=== PATIENT | male | born 1970 | race African-American/Black ===

== ENCOUNTER 2022-12-30 17:33 | Emergency (ER) | payer SELFPAY ==
[~2022-12-30] VITALS: Ht 180.3 cm; Wt 86.4 kg
[2022-12-30 17:36] VITALS: TEMP 98.6
[2022-12-30 18:00] LABS: BASO # 0.1 K/mm3 (0.0-0.2); BASO % 0.8 % (0.0-2.0); EOS # 0.2 K/mm3 (0.0-0.7); EOS % 2.6 % (0.0-4.0); GRAN # 3.5 K/mm3 (1.4-6.5); GRAN % 44.2 % (42.2-75.2); HEMATOCRIT 46.1 % (42.0-52.0); HEMOGLOBIN 15.8 g/dl (13.5-18.0); LYMPH # 3.7 K/mm3 (1.2-3.4); LYMPH % 46.9 % (20.0-51.0); MEAN CELL VOLUME 83 fl (80.0-100.0); MEAN CORPUSCULAR HEMOGLOBIN 28 pg (27-31); MEAN CORPUSCULAR HGB CONC 34 g/dl (33.0-37.0); MEAN PLATELET VOLUME 11.4 fl (7.4-10.4); MONO # 0.4 K/mm3 (0.1-0.6); MONO % 5.2 % (1.7-9.3); PLATELET COUNT 257 K/mm3 (130-400); RED BLOOD COUNT 5.56 M/mm3 (4.20-5.60); REDCELL DISTRIBUTION WIDTH-CV 13.9 % (11.5-14.5)
[2022-12-30 18:18] LABS: ALANINE AMINOTRANSFERASE 42 U/L (0-55); ALBUMIN 4.1 gm/dL (3.5-5.0); ALKALINE PHOSPHATASE 86 U/L (40-150); ANION GAP 10 mmol/L (7-16); AST,SGOT 15 U/L (5-34); BILIRUBIN,TOTAL 0.2 mg/dL (0.2-1.2); BLOOD UREA NITROGEN 13 mg/dL (8-26); CALCIUM 9.3 mg/dL (8.4-10.2); CARBON DIOXIDE 24 mmol/L (22-29); CHLORIDE 106 mmol/L (98-107); GLUCOSE 109 mg/dL (70-99); POTASSIUM 3.7 mmol/L (3.5-4.5); SODIUM 140 mmol/L (136-145)
[2022-12-30 18:24] LABS: TROPONIN-I < 0.010 ng/mL (0.00-0.033)
[2022-12-30 19:30] VITALS: BP 160/101; PULSE 78
== END 2022-12-30 19:31 | disposition home or self-care (01) ==
LOC: COL.ER 17:33
PROVIDERS: Nurse Practitioner Primary Care
DX: R07.9 Chest pain, unspecified (principal); R20.2 Paresthesia of skin; M79.602 Pain in left arm; M79.601 Pain in right arm; R03.0 Elevated blood-pressure reading, without diagnosis of hypertension
CPT/HCPCS: J1200; J1885

== ENCOUNTER 2023-02-20 08:18 | Outpatient (RCR) | payer OTHER | END 2023-03-05 | disposition home or self-care (01) | LOC: WSPT | DX: H81.90 Unspecified disorder of vestibular function, unspecified ear (principal) ==